=== PATIENT | female | born 1985 | race Caucasian/White ===

== ENCOUNTER 2017-02-28 11:25 | Emergency (ER) | payer SELFPAY ==
[2017-02-28 11:35] VITALS: BP 122/80; PULSE 89; TEMP 98.6; BMI 23.3
--- NOTE | 2017-02-28 12:07 | PDOC ---
History of Present Illness - General Chief Complaint: Toothache Stated Complaint: PAIN/ LT SIDE OF FACE Time Seen by Provider: 02/28/17 11:59 History Source: Patient Exam Limitations: No Limitations - History of Present Illness Initial Comments: 02/28/17 12:06 Patient is a 31-year-old female, no significant medical history currently on no medication history of allergy to penicillin presents for left lower first molar pain, significant decay as per patient states she went to the dentist today however her insurance is active and they wouldn't see her. Past Medical History: Denies. Allergies: No known allergies Medications: Denies Family History: Non-contributory Social History: One pack every 3 days, no alcohol use, or IVDU Review of Systems GENERAL/CONSTITUTIONAL: No fever or chills. No weakness. No weight change. HEAD, EYES, EARS, NOSE AND THROAT: No change in vision. No ear pain or discharge. No sore throat. Left lower first molar decay. CARDIOVASCULAR: No chest pain or shortness of breath. RESPIRATORY: No cough, wheezing, or hemoptysis. GASTROINTESTINAL: No nausea, vomiting, diarrhea or constipation. No rectal bleeding. GENITOURINARY: No dysuria, frequency, or change in urination. MUSCULOSKELETAL: No joint or muscle swelling or pain. No neck or back pain. SKIN : No rash or easy bruising. NEUROLOGIC: No headache, vertigo, loss of consciousness, or loss of sensation. ENDOCRINE: No increased thirst. No abnormal weight change. HEMATOLOGIC/LYMPHATIC: No anemia, easy bleeding, or history of blood clots. ALLERGIC/IMMUNOLOGIC: No hives or skin allergy. No latex allergy. Physical Exam: GENERAL: The patient is awake, alert, and fully oriented, in no acute distress. HEAD: Normal with no signs of trauma. No edema to face or head. EYES: Pupils equal, round and reactive to light, extraocular movements intact, sclera anicteric, conjunctiva clear. ENT: Ears normal, nares patent, oropharynx clear without exudates. Moist mucous membranes. No uvula deviation. Decay to left first lower molar, tooth fracture, no evidence of abscess at gumline. NECK: Normal range of motion, supple without lymphadenopathy, JVD, or masses. LUNGS: Breath sounds equal, clear to auscultation bilaterally. No wheezes, and no crackles. SKIN: Warm, Dry, normal turgor, no rashes or lesions noted. Past History - Past Medical History Allergies/Adverse Reactions: Allergies Allergy/AdvReac Type Severity Reaction Status Date / Time Penicillins Allergy Verified 02/28/17 11:36 Home Medications: Ambulatory Orders Clindamycin [Cleocin -] 300 mg PO TID #30 capsule 02/28/17 Oxycodone HCl/Acetaminophen [Percocet 5-325 mg Tablet] 1 - 2 tab PO Q4H #15 tablet MDD 10 02/28/17 - Surgical History Abdominal Surgery: Yes - Suicide/Smoking/Psychosocial Hx Smoking History: Current every day smoker Have you smoked in the past 12 months: Yes Number of Cigarettes Smoked Daily: 7 Information on smoking cessation initiated: No Hx Alcohol Use: No Drug/Substance Use Hx: No Substance Use Type: None *Physical Exam - Vital Signs Last Vital Signs Temp Pulse Resp BP Pulse Ox 98.6 F 89 14 122/80 97 02/28/17 11:32 02/28/17 11:32 02/28/17 11:32 02/28/17 11:32 02/28/17 11:32 Medical Decision Making - Medical Decision Making 02/28/17 12:18 A/P: Patient with significant dental decay and fracture tooth to left first lower molar was unable to see dentist due to insurance difficulty will DC patient on clindamycin, Percocet for pain, follow-up as soon as possible for evaluation if any facial edema, pain, fever, or any other concerns return to ER *DC/Admit/Observation/Transfer Diagnosis at time of Disposition: Dental decay - Discharge Dispostion Disposition: HOME Condition at time of disposition: Good Admit: No - Prescriptions Prescriptions: Clindamycin [Cleocin -] 300 mg PO TID #30 capsule Oxycodone HCl/Acetaminophen [Percocet 5-325 mg Tablet] 1 - 2 tab PO Q4H #15 tablet MDD 10 - Referrals Referrals: Surinder Duron [Primary Care Provider] - Dental [facility] Clinic [Other] - Patient Instructions Printed Discharge Instructions: DI for Tooth Decay, DI for Dental Pain - Post Discharge Activity Forms/Work/School Notes: Back to Work
== END 2017-02-28 12:35 | disposition home or self-care (01) ==
LOC: JERFT 11:25
DX: K02.9 Dental caries, unspecified (principal); F17.210 Nicotine dependence, cigarettes, uncomplicated
CPT/HCPCS: 99281-25